=== PATIENT | female | born 1995 | race Caucasian/White ===

== ENCOUNTER 2017-06-18 11:55 | Emergency (ER) | payer OTHER ==
[2017-06-18] MEDS ORDERED: KETOROLAC 30 MG INJ IV (12:12)
[2017-06-18] MEDS: SOD CHLORIDE 0.9% 1,000 ML IV (12:26)
[2017-06-18] MEDS: ONDANSETRON 4 MG INJ IV (12:26)
[2017-06-18] MEDS: ACETAMINOPHEN 325 MG TAB PO (12:34)
[2017-06-18 12:45] LABS: ADD MAN DIFF? NO
[2017-06-18 12:49] LABS: WHITE BLOOD COUNT 6.9 10^3/ul (4.8-10.8)
[2017-06-18 12:49] LABS: BASOPHILS % 0.4 % (0.0-2.0); EOSINOPHILS # 0.1 10^3/ul (0.0-0.5); EOSINOPHILS % 1.6 % (0.0-7.0); HEMATOCRIT 37.1 % (37.0-47.0); LYMPHOCYTES # 2.5 10^3/ul (0.8-2.9); LYMPHOCYTES % 35.8 % (15.0-51.0); MEAN CORPUSCULAR VOLUME 85.5 fl (82.0-101.0); MEAN PLATELET VOLUME 11.4 fl (7.4-10.4); MONOCYTE # 0.4 10^3/ul (0.3-0.9); MONOCYTES % 5.5 % (0.0-11.0); NEUTROPHIL # 3.9 10^3/ul (1.6-7.5); NEUTROPHILS % 56.4 % (39.0-77.0); PLATELET COUNT 246 10^3/UL (140-415); RED BLOOD COUNT 4.34 10^6/ul (4.20-5.40); RED CELL DISTRIBUTION WIDTH 12.9 % (11.5-14.5)
[2017-06-18 12:50] LABS: ADD UMIC NO; UR ASCORBIC ACID NEGATIVE (NEGATIVE); UR BILIRUBIN (Dip) NEGATIVE (NEGATIVE); UR BLOOD (Dip) NEGATIVE (NEGATIVE); UR CLARITY SLIGHTLY CLOUDY (CLEAR); UR COLOR YELLOW (YELLOW); UR GLUCOSE (Dip) NEGATIVE (NEGATIVE); UR KETONES (Dip) NEGATIVE (NEGATIVE); UR LEUKOCYTE ESTERASE (Dip) NEGATIVE Leu/ul (NEGATIVE); UR NITRITE (Dip) NEGATIVE (NEGATIVE); UR RBC 0 /HPF (0-5); UR SPECIFIC GRAVITY (Dip) 1.016 (1.003-1.030); UR SQUAMOUS EPITHELIAL CELL FEW /HPF (FEW); UR TOTAL PROTEIN (Dip) NEGATIVE (NEGATIVE); UR UROBILINOGEN (Dip) NEGATIVE (NEGATIVE); UR WBC 0 /HPF (0-5)
[2017-06-18 13:05] LABS: ALANINE AMINOTRANSFERASE 27 IU/L (13-69); ALBUMIN 4.6 g/dl (3.3-4.9); ALBUMIN/GLOBULIN RATIO 1.58; ALKALINE PHOSPHATASE 53 IU/L (42-121); ANION GAP 17 (8-16); ASPARTATE AMINO TRANSFERASE 20 IU/L (15-46); BILIRUBIN,INDIRECT 0.3 mg/dl (0-1.1); BILIRUBIN,TOTAL 0.3 mg/dl (0.2-1.3); BLOOD UREA NITROGEN 12 mg/dl (7-20); CALCIUM 9.3 mg/dl (8.4-10.2); CARBON DIOXIDE 22 mmol/L (21-31); CHLORIDE 106 mmol/L (97-110); CREATININE 0.58 mg/dl (0.44-1.00); GLUCOSE 80 mg/dl (70-220); LIPASE 102 U/L (23-300); SODIUM 141 mmol/L (135-144); TOTAL PROTEIN 7.5 g/dl (6.1-8.1)
[2017-06-18 13:10] LABS: INR 0.97
[2017-06-18 13:11] LABS: PARTIAL THROMBOPLASTIN TIME 26.9 Sec (25.0-35.0)
== END 2017-06-18 15:52 | disposition home or self-care (01) ==
LOC: FTE 11:55
DX: O26.891 Other specified pregnancy related conditions, first trimester (principal); R10.2 Pelvic and perineal pain; Z3A.01 Less than 8 weeks gestation of pregnancy
CPT/HCPCS: 36415; 76801; 76817; 80053; 81001; 81003; 83690; 84702; 85025; 85610; 85730; 86900; 86901; 96374; 99285-25

== ENCOUNTER 2018-01-20 22:50 | Outpatient (CLI) | payer OTHER ==
[2018-01-21 00:06] LABS: ADD UMIC NO; UR ASCORBIC ACID 40 mg/dL (NEGATIVE); UR BILIRUBIN (Dip) NEGATIVE (NEGATIVE); UR BLOOD (Dip) NEGATIVE (NEGATIVE); UR CLARITY CLEAR (CLEAR); UR COLOR YELLOW (YELLOW); UR GLUCOSE (Dip) NEGATIVE (NEGATIVE); UR KETONES (Dip) NEGATIVE (NEGATIVE); UR LEUKOCYTE ESTERASE (Dip) NEGATIVE Leu/ul (NEGATIVE); UR NITRITE (Dip) NEGATIVE (NEGATIVE); UR SPECIFIC GRAVITY (Dip) 1.023 (1.003-1.030); UR TOTAL PROTEIN (Dip) NEGATIVE (NEGATIVE); UR UROBILINOGEN (Dip) 2+ mg/dL (NEGATIVE)
[2018-01-21 01:06] LABS: ADD MAN DIFF? NO
[2018-01-21 01:07] LABS: BASOPHILS % 0.3 % (0.0-2.0); EOSINOPHILS # 0.1 10^3/ul (0.0-0.5); EOSINOPHILS % 1.1 % (0.0-7.0); HEMATOCRIT 30.1 % (37.0-47.0); HEMOGLOBIN 10.3 g/dl (12.0-16.0); LYMPHOCYTES # 2.4 10^3/ul (0.8-2.9); LYMPHOCYTES % 24.5 % (15.0-51.0); MEAN CORPUSCULAR HEMOGLOBIN 29.4 pg (29.0-33.0); MEAN CORPUSCULAR HGB CONC 34.2 g/dl (32.0-37.0); MEAN PLATELET VOLUME 11.7 fl (7.4-10.4); MONOCYTE # 0.6 10^3/ul (0.3-0.9); NEUTROPHIL # 6.6 10^3/ul (1.6-7.5); NEUTROPHILS % 67.3 % (39.0-77.0); PLATELET COUNT 205 10^3/UL (140-415); RED CELL DISTRIBUTION WIDTH 12.4 % (11.5-14.5)
[2018-01-21 01:07] LABS: WHITE BLOOD COUNT 9.9 10^3/ul (4.8-10.8)
[2018-01-21 01:42] LABS: ALANINE AMINOTRANSFERASE 15 IU/L (13-69); ALBUMIN 3.2 g/dl (3.3-4.9); ALKALINE PHOSPHATASE 224 IU/L (42-121); ANION GAP 12 (8-16); ASPARTATE AMINO TRANSFERASE 22 IU/L (15-46); BILIRUBIN,INDIRECT 0.4 mg/dl (0-1.1); BILIRUBIN,TOTAL 0.4 mg/dl (0.2-1.3); BLOOD UREA NITROGEN 11 mg/dl (7-20); CALCIUM 8.6 mg/dl (8.4-10.2); CARBON DIOXIDE 19 mmol/L (21-31); CHLORIDE 108 mmol/L (97-110); CREATININE 0.47 mg/dl (0.44-1.00); GLUCOSE 76 mg/dl (70-220); POTASSIUM 3.8 mmol/L (3.5-5.1); SODIUM 135 mmol/L (135-144); TOTAL PROTEIN 6.1 g/dl (6.1-8.1)
[2018-01-21] MEDS ORDERED: TERBUTALINE 1 ML (02:06)
[2018-01-21] MEDS: LACTATED RINGER'S 1,000 ML IV ×2 (02:15→05:01)
[2018-01-21] MEDS: TERBUTALINE 1 MG/ML INJ SC (02:15)
== END 2018-01-21 07:00 | disposition home or self-care (01) ==
LOC: OBT 22:50 → L-D 22:51
DX: O62.9 Abnormality of forces of labor, unspecified (principal); Z3A.34 34 weeks gestation of pregnancy
CPT/HCPCS: 36415; 76815; 76818; 80053; 81003; 85025; 96360; 96361; 96372

== ENCOUNTER 2018-02-13 21:21 | Inpatient (IN) | payer OTHER ==
[2018-02-13] MEDS ORDERED: OXYTOCIN 30 UNITS/LR 500 ML IV ×2 (22:00)
[2018-02-13] MEDS ORDERED: IBUPROFEN 600 MG TAB PO (22:00)
[2018-02-13] MEDS ORDERED: BUTORPHANOL 2 MG INJ IV (22:00)
[2018-02-13] MEDS ORDERED: MISOPROSTOL 200 MCG TAB PR (22:00)
[2018-02-13] MEDS ORDERED: CARBOPROST 250 MCG INJ IM (22:00)
[2018-02-13] MEDS ORDERED: OXYCODONE/ASPIRIN (4.88/325) TAB PO (22:00)
[2018-02-13] MEDS ORDERED: LIDOCAINE 1% (MPF) 30 ML INJ INJ (22:00)
[2018-02-13] MEDS ORDERED: METHYLERGONOVINE 0.2 MG INJ IM (22:00)
[2018-02-13 22:14] LABS: ADD MAN DIFF? NO
[2018-02-13] MEDS: LACTATED RINGER'S 1,000 ML IV* ×2 (22:14→23:00)
[2018-02-13 22:17] LABS: WHITE BLOOD COUNT 12.5 10^3/ul (4.8-10.8)
[2018-02-13 22:17] LABS: BASOPHILS % 0.3 % (0.0-2.0); EOSINOPHILS # 0.1 10^3/ul (0.0-0.5); EOSINOPHILS % 0.7 % (0.0-7.0); HEMATOCRIT 33.9 % (37.0-47.0); HEMOGLOBIN 11.2 g/dl (12.0-16.0); LYMPHOCYTES # 2.7 10^3/ul (0.8-2.9); LYMPHOCYTES % 21.8 % (15.0-51.0); MEAN CORPUSCULAR HEMOGLOBIN 27.9 pg (29.0-33.0); MEAN CORPUSCULAR VOLUME 84.3 fl (82.0-101.0); MEAN PLATELET VOLUME 12.1 fl (7.4-10.4); MONOCYTE # 0.7 10^3/ul (0.3-0.9); MONOCYTES % 5.8 % (0.0-11.0); NEUTROPHIL # 8.8 10^3/ul (1.6-7.5); NEUTROPHILS % 70.8 % (39.0-77.0); PLATELET COUNT 190 10^3/UL (140-415); RED BLOOD COUNT 4.02 10^6/ul (4.20-5.40); RED CELL DISTRIBUTION WIDTH 12.7 % (11.5-14.5)
[2018-02-13] MEDS ORDERED: FENTAnyl 2MCG/ML-ROPIV 0.2% 100 ML (22:37)
[2018-02-13 22:47] LABS: INR 0.89; PARTIAL THROMBOPLASTIN TIME 25.6 Sec (25.0-35.0); PROTIME 12.1 Sec (11.9-14.9); PT RATIO 0.9
[2018-02-13] MEDS ORDERED: NALOXONE (0.4 MG/ML) INJ IV (23:00)
[2018-02-13] MEDS ORDERED: FENTAnyl 2MCG/ML-ROPIV 0.2% 100 ML BAG EPI (23:00)
[2018-02-13 23:15] LABS: HEPATITIS B SURFACE ANTIGEN NEGATIVE (NEGATIVE)
[2018-02-14] MEDS: OXYTOCIN 30 UNITS/LR 500 ML IV ×3 (00:31→08:27)
[2018-02-14] MEDS ORDERED: ACETAMINOPHEN 325 MG TAB PO (08:30)
[2018-02-14] MEDS ORDERED: DIBUCAINE 1% 30 GM OINT PR (08:30)
[2018-02-14] MEDS ORDERED: HYDROCODONE/APAP (5/325) TAB PO ×2 (08:30)
[2018-02-14] MEDS ORDERED: ONDANSETRON 4 MG INJ IV (08:30)
[2018-02-14] MEDS ORDERED: OXYCODONE/ASPIRIN (4.88/325) TAB PO ×2 (08:30)
[2018-02-14] MEDS: IBUPROFEN 600 MG TAB PO ×4 (10:01→23:22)
[2018-02-14] MEDS: SENNA/DOCUSATE NA (8.6MG/50MG) TAB PO ×2 (11:36→20:49)
[2018-02-14 15:00] LABS: RAPID PLASMA REAGIN NONREACTIVE (NR)
[2018-02-14] MEDS: WITCH HAZEL/GLYCERIN PAD PR (17:27)
[2018-02-14] MEDS: LANOLIN 7 GM TUBE TOP (17:27)
[2018-02-14] MEDS: BENZOCAINE 20% 56 ML SPRAY TOP (17:27)
[2018-02-15] MEDS: IBUPROFEN 600 MG TAB PO ×2 (05:04→11:52)
[2018-02-15 07:59] LABS: ADD MAN DIFF? NO
[2018-02-15 08:04] LABS: BASOPHIL # 0.1 10^3/ul (0.0-0.1); BASOPHILS % 0.4 % (0.0-2.0); EOSINOPHILS # 0.2 10^3/ul (0.0-0.5); EOSINOPHILS % 1.7 % (0.0-7.0); HEMATOCRIT 31.8 % (37.0-47.0); HEMOGLOBIN 10.5 g/dl (12.0-16.0); LYMPHOCYTES # 3.4 10^3/ul (0.8-2.9); LYMPHOCYTES % 30.1 % (15.0-51.0); MEAN CORPUSCULAR HEMOGLOBIN 28.3 pg (29.0-33.0); MEAN CORPUSCULAR VOLUME 85.7 fl (82.0-101.0); MEAN PLATELET VOLUME 12.4 fl (7.4-10.4); MONOCYTE # 0.7 10^3/ul (0.3-0.9); MONOCYTES % 6.5 % (0.0-11.0); NEUTROPHIL # 6.8 10^3/ul (1.6-7.5); NEUTROPHILS % 60.4 % (39.0-77.0); PLATELET COUNT 193 10^3/UL (140-415); RED BLOOD COUNT 3.71 10^6/ul (4.20-5.40); RED CELL DISTRIBUTION WIDTH 12.9 % (11.5-14.5)
[2018-02-15 08:04] LABS: WHITE BLOOD COUNT 11.3 10^3/ul (4.8-10.8)
[2018-02-15] MEDS: SENNA/DOCUSATE NA (8.6MG/50MG) TAB PO (09:00)
[2018-02-16] MEDS ORDERED: MEASLES,MUMPS,RUBELLA VACCINE INJ SC* (09:00)
== END 2018-02-15 18:28 | disposition home or self-care (01) | DRG 775 ==
LOC: OBT 21:21 → L-D 02-14 06:32 → PP1 02-14 17:00 → OBT 21:50 → L-D 21:50
PROVIDERS: Obstetrics & Gynecology
PROC: 10E0XZZ Delivery of Products of Conception, External Approach (ICD-10-PCS; principal; 2018-02-14)
DX: O80 Encounter for full-term uncomplicated delivery (principal); Z3A.38 38 weeks gestation of pregnancy; Z37.0 Single live birth
CPT/HCPCS: 85025; 85610; 85730; 86592; 86850; 86900; 86901; 87340